=== PATIENT | female | born 1995 | race Asian ===

== ENCOUNTER 2020-11-21 22:45 | Inpatient (IN) | payer OTHER ==
[2020-11-21 23:52] LABS: BASO % 0.3 % (0-2.0); EOS % 0.3 % (0-4.5); HEMATOCRIT 30.5 % (32.4-45.2); HEMOGLOBIN 9.6 GM/dL (10.7-15.3); MCH 23.2 pg (25.7-33.7); MCHC 31.3 g/dl (32.0-36.0); MEAN PLT VOLUME 8.7 fl (7.5-11.1); MONO % 5.9 % (3.8-10.2); NEUT % 79.5 % (42.8-82.8); PLATELET COUNT 289 K/MM3 (134-434); RBC 4.12 M/mm3 (3.60-5.2); RDW 17.9 % (11.6-15.6); WHITE BLOOD COUNT 11.6 K/mm3 (4.0-10.0)
[2020-11-21 23:59] LABS: INR 0.99 (0.83-1.09); PROTHROMBIN TIME (PATIENT) 12.2 SEC (9.7-13.0)
[2020-11-22 00:01] LABS: ACTIVATED PTT 26.1 SECONDS (25.2-36.5)
[2020-11-22 00:14] LABS: POTASSIUM 4.4 mmol/L (3.5-5.1)
[2020-11-22 00:16] LABS: CALCIUM 8.9 mg/dL (8.5-10.1)
[2020-11-22 00:17] LABS: BLOOD UREA NITROGEN 10.3 mg/dL (7-18)
[2020-11-22 00:20] LABS: CREATININE 0.7 mg/dL (0.55-1.3)
[2020-11-22 00:26] VITALS: BMI 26.9
[2020-11-22] MEDS ORDERED: PCA PUMP NR ONE (00:33)
[2020-11-22] MEDS ORDERED: FENTANYL/BUPIVACAINE/NS/PF - PCEA - 50 ML DISP.SYRIN EP ONE ×2 (00:33→04:30)
[2020-11-22] MEDS ORDERED: BUPIVACAINE HCL/PF 0.25% (2.5MG/ML) 10 ML VIAL ONE (00:34)
[2020-11-22] MEDS ORDERED: NALOXONE HCL 0.4 MG/ML VIAL IVPUSH PRN (00:56)
[2020-11-22] MEDS ORDERED: FENTANYL/BUPIVACAINE/NS/PF - PCEA - 50 ML DISP.SYRIN EP SCH (01:00)
[2020-11-22] MEDS ORDERED: ELECTROLYTE-148 SOLN 500 ML IV ONE (01:48)
[2020-11-22] MEDS ORDERED: ELECTROLYTE-148 SOLN 1,000 ML IV SCH (02:00)
[2020-11-22] MEDS ORDERED: OXYTOCIN 20 UNITS in 0.9% NS 20 UNIT/1,000 ML INFUS.BAG IV ONE ×2 (03:41→05:45)
[2020-11-22] MEDS ORDERED: LIDOCAINE HCL 1% PRESERVATIVE FREE - 30ML VIAL ONE (03:41)
[2020-11-22] MEDS: OXYTOCIN 20 UNITS in 0.9% NS 20 UNIT/1,000 ML INFUS.BAG IV SCH ×2 (04:25→05:50)
[2020-11-22] MEDS ORDERED: BISACODYL 10 MG SUPP.RECT RC PRN (04:44)
[2020-11-22] MEDS ORDERED: METHYLERGONOVINE MALEATE 0.2 MG/1 ML AMP IM PRN (04:44)
[2020-11-22] MEDS ORDERED: BENZOCAINE 28 GM HEMORRHOIDAL OINTMENT TP PRN (04:44)
[2020-11-22] MEDS ORDERED: WITCH HAZEL 50% (TUCKS) 40 PAD/JAR PAD TP PRN (04:44)
[2020-11-22] MEDS ORDERED: IBUPROFEN 600 MG TABLET (FP) PO ONE (05:31)
[2020-11-22] MEDS ORDERED: ACETAMINOPHEN 325 MG TABLET (FP) ONE (05:31)
[2020-11-22] MEDS: IBUPROFEN 600 MG TABLET (FP) PO PRN ×3 (05:35→23:32)
[2020-11-22] MEDS: ACETAMINOPHEN 325 MG TABLET (FP) PO PRN ×3 (05:35→20:14)
[2020-11-22] MEDS: BENZOCAINE 20% 57 GM BOTTLE TP PRN (06:27)
[2020-11-22] MEDS: PRENATAL VITAMINS W/ FOLIC ACID TABLET (FP) PO SCH (09:43)
[2020-11-22] MEDS: oxyCODONE HCL 5 MG TABLET PO PRN ×2 (13:41→20:13)
[2020-11-22 20:32] VITALS: TEMP 97.9
[2020-11-23] MEDS: oxyCODONE HCL 5 MG TABLET PO PRN (05:56)
[2020-11-23] MEDS: ACETAMINOPHEN 325 MG TABLET (FP) PO PRN ×2 (05:57→12:01)
[2020-11-23 08:24] LABS: BASO % 0.2 % (0-2.0); EOS % 1.8 % (0-4.5); HEMOGLOBIN 7.1 GM/dL (10.7-15.3); LYMPH % 14.5 % (8-40); MCH 22.9 pg (25.7-33.7); MCHC 30.9 g/dl (32.0-36.0); MEAN PLT VOLUME 8.3 fl (7.5-11.1); NEUT % 77.5 % (42.8-82.8); PLATELET COUNT 260 K/MM3 (134-434); RBC 3.11 M/mm3 (3.60-5.2); RDW 17.8 % (11.6-15.6); WHITE BLOOD COUNT 14.2 K/mm3 (4.0-10.0)
[2020-11-23] MEDS: PRENATAL VITAMINS W/ FOLIC ACID TABLET (FP) PO SCH (09:52)
[2020-11-23] MEDS: BENZOCAINE 20% 57 GM BOTTLE TP PRN (11:22)
[2020-11-23] MEDS: IBUPROFEN 600 MG TABLET (FP) PO PRN (12:01)
[2020-11-23 13:31] VITALS: BP 99/60; PULSE 100
[2020-11-23] MEDS ORDERED: SENNOSIDES/DOCUSATE COMBO (SENNA PLUS) TABLET (UD) PO PRN (22:00)
== END 2020-11-23 13:05 | disposition home or self-care (01) | DRG 807 ==
LOC: JDEL 22:45 → JLDR 23:10 → J3W 11-22 05:50
PROVIDERS: ADMIT Obstetrics & Gynecology; ATTEND Obstetrics & Gynecology
PROC: 10E0XZZ Delivery of Products of Conception, External Approach (ICD-10-PCS; principal; 2020-11-22)
PROC: 0KQM0ZZ Repair Perineum Muscle, Open Approach (ICD-10-PCS; 2020-11-22)
PROC: 0W8NXZZ Division of Female Perineum, External Approach (ICD-10-PCS; 2020-11-22)
DX: O70.1 Second degree perineal laceration during delivery (principal); Z37.0 Single live birth; O99.013 Anemia complicating pregnancy, third trimester; D64.9 Anemia, unspecified; Z3A.40 40 weeks gestation of pregnancy
CPT/HCPCS: 36415; 59409; 80048; 85025; 85610; 85730; 86780; 86850; 86900; 86901; C9803; U0003

== ENCOUNTER 2021-12-09 21:05 | Emergency (ER) | payer OTHER ==
[2021-12-09 21:46] VITALS: BMI 21.7
[2021-12-09] MEDS ORDERED: IBUPROFEN 600 MG TABLET (FP) PO ONE ×2 (22:09→22:51)
[2021-12-09 23:50] VITALS: BP 117/76; PULSE 97; TEMP 99.8
[2021-12-11 14:13] LABS: SARS-CoV-2 NAA Detected (Not Detected)
== END 2021-12-09 23:46 | disposition home or self-care (01) ==
LOC: JERFT 21:05
DX: R50.9 Fever, unspecified (principal); J02.9 Acute pharyngitis, unspecified; R05.1 Acute cough
CPT/HCPCS: 87804; 87807; 99284-25; C9803-CS; U0003; U0005

== ENCOUNTER 2024-09-13 11:27 | Emergency (ER) | payer BC ==
[2024-09-13] MEDS ORDERED: CYCLOBENZAPRINE HCL 10 MG TABLET (FP) PO ONE (12:20)
[2024-09-13] MEDS ORDERED: LIDOCAINE 4% PATCH TP ONE (12:24)
[2024-09-13] MEDS ORDERED: NAPROXEN 500 MG TABLET ONE (12:24)
[2024-09-13] MEDS ORDERED: CYCLOBENZAPRINE HCL 5 MG TABLET ONE (12:25)
[2024-09-13] MEDS: LIDOCAINE 4% PATCH TP ONE (12:29)
[2024-09-13] MEDS: CYCLOBENZAPRINE HCL 5 MG TABLET PO STA (12:29)
[2024-09-13] MEDS: NAPROXEN 500 MG TABLET PO ONE (12:29)
[2024-09-13 12:32] VITALS: BP 109/83; PULSE 87; RESP 18; TEMP 97.9; BMI 21.3
== END 2024-09-13 13:31 | disposition home or self-care (01) ==
LOC: JERFT 11:27
DX: M54.6 Pain in thoracic spine (principal); M25.512 Pain in left shoulder
CPT/HCPCS: 71045-TC-FY; 72070-TC-FY; 99284-25